=== PATIENT | male | born 2000 ===

== ENCOUNTER 2020-07-10 07:55 | Day surgery (SDC) | payer OTHER ==
[2020-07-10 08:15] VITALS: BP 124/66
[2020-07-10] MEDS ORDERED: CHLORHEXIDINE 15 ML UDC MM STA (08:19)
[2020-07-10] MEDS ORDERED: CHLORHEXIDINE 15 ML UDC ONE (08:26)
[2020-07-10] MEDS ORDERED: LACTATED RINGERS 1,000 ML IV SCH (08:30)
[2020-07-10] MEDS ORDERED: PLEASE ENTER HEIGHT AND WEIGHT MC SCH (08:30)
[2020-07-10] MEDS ORDERED: METO25TA35 PO (08:46)
[2020-07-10] MEDS ORDERED: ACET325T14 PO (08:46)
[2020-07-10] MEDS ORDERED: DOCU100C33 PO (08:46)
[2020-07-10] MEDS ORDERED: MIDAZOLAM 1 MG/ML, 2ML ONE (09:17)
[2020-07-10] MEDS ORDERED: FENTANYL PF 250 MCG/5ML ONE (09:18)
[2020-07-10] MEDS ORDERED: DEXAMETHASONE 4 MG/ML, 1ML ONE ×2 (09:20→09:30)
[2020-07-10] MEDS ORDERED: ONDANSETRON 2MG/ML, 2ML ONE ×3 (09:20→09:30)
[2020-07-10] MEDS ORDERED: ROCURONIUM 10MG/ML,5ML ONE (09:30)
[2020-07-10] MEDS ORDERED: PROPOFOL 10 MG/ML, 20ML ONE (09:30)
[2020-07-10] MEDS ORDERED: SUCCINYLCHOLINE 20 MG/ML, 10ML ONE (09:30)
[2020-07-10] MEDS ORDERED: FENTANYL PF 100 MCG/2ML IV PRN (10:00)
[2020-07-10] MEDS ORDERED: OXYcodone 5 MG/5 ML ORAL.SOL UDC PO PRN (10:00)
[2020-07-10] MEDS ORDERED: MIDAZOLAM 1 MG/ML, 2ML IV PRN (10:00)
[2020-07-10] MEDS ORDERED: DIAZEPAM 5 MG/ML, 2ML IVPush PRN (10:00)
[2020-07-10] MEDS ORDERED: OMNIPAQUE 350 MG/ML, 50 ML BOTTLE ONE (10:00)
[2020-07-10] MEDS ORDERED: LABETALOL 5MG/ML, 20ML IV PRN (10:00)
[2020-07-10] MEDS ORDERED: PROMETHAZINE 25 MG/ML, 1ML IVPush PRN (10:00)
[2020-07-10] MEDS ORDERED: DIPHENHYDRAMINE 50 MG/ML, 1ML IVPush PRN (10:00)
[2020-07-10] MEDS ORDERED: ALBUTEROL SULFATE 2.5 MG/3 ML NPPB PRN (10:00)
[2020-07-10] MEDS ORDERED: PROMETHAZINE 12.5 MG SUPP PR PRN (10:00)
[2020-07-10] MEDS ORDERED: EPHEDRINE 50 MG/ML, 1ML IVPush PRN (10:00)
[2020-07-10] MEDS ORDERED: HYDROmorphone 1 MG/ML, 1ML INJ IVPush PRN (10:00)
[2020-07-10] MEDS ORDERED: ONDANSETRON 2MG/ML, 2ML IVPush PRN (10:00)
[2020-07-10] MEDS ORDERED: hydrALAzine 20 MG/ML, 1ML IV PRN (10:00)
[2020-07-10] MEDS ORDERED: MEPERIDINE/PF 25MG/0.5ML IVPush PRN (10:00)
== END 2020-07-10 11:30 | disposition home or self-care (01) ==
LOC: OUT 07:55
PROVIDERS: ATTEND Internal Medicine
DX: Z46.59 Encounter for fitting and adjustment of other gastrointestinal appliance and device (principal); Z20.828 Contact with and (suspected) exposure to other viral communicable diseases; K83.9 Disease of biliary tract, unspecified
CPT/HCPCS: 43275; 74328; 87635; C1769; J0330; J1100; J2250; J2405; J2704; J3010; Q9967